=== PATIENT | male | born 1970 | race Caucasian/White ===

== ENCOUNTER → 2017-06-29 | Outpatient (CLI) | payer BC ==
[~2017-06-29] MED LIST: NS 100 ML IV 100 ML IV ONE
--- NOTE | 2017-06-29 11:44 | CT ---
HISTORY: Abdominal pain. Hernia. Previous appendectomy and cholecystectomy. Study: Computed tomography of the abdomen and pelvis: Multiple axial images were obtained throughou t the abdomen and pelvis after the ingestion of oral contrast and the injection of intravascular cont rast per standard protocol. Radiation dose reduction techniques utilized. Comparison: None Findings: The lung bases demonstrate minimal ground-glass opacity in the anterior aspect of the right middle lo be, possibly minimal infiltrate. Minimal hypostatic changes otherwise noted. Small areas of scarrin g are present. The heart size is normal. Minimal coronary arterial calcification is noted. No appreciable pericard ial effusion is noted. There is moderate fatty infiltration of the liver. No focal lesions are identified. Mild hepatomega ly is present. The patient is status post cholecystectomy. No appreciable biliary duct dilatation i s noted. The pancreas is normal in its appearance. The spleen is normal. A small splenic lobule is present. There is what appears to be a left adrenal nodule measuring approximately 14 mm in maximum dimension. Minimal thickening of the adrenal glands is noted. A 2nd nodule is present in the genu of the left adrenal gland measuring approximately 10 mm in maximum dimension. The kidneys enhance no rmally. There is a 1-2 mm nonobstructing calculus in the lower pole on the left. The abdominal aort a is normal. No evidence of retroperitoneal lymph node enlargement or abdominal aortic aneurysm is n oted. The prostate is normal size. Bilateral fat containing inguinal hernias are noted, right large r than left. The bladder contour is smooth. The seminal vesicles are symmetric. No evidence of kar e pelvic fluid or ascites is noted. A very tiny fat containing umbilical hernia is present. The stomach is nondistended. The duodenum and small bowel are normal. I see no evidence of mesenter ic adenopathy. The terminal ileum is normal. A fatty ileocecal valve is present. I do not identify an appendix. The ascending colon and transverse colon are normal. The descending colon is normal. The sigmoid colon is moderate to moderately severely redundant. A moderate amount of stool is noted in the sigmoid colon and rectum. Examination of the bone windows demonstrates minimal lumbar spondylosis. IMPRESSION: 1. There are bilateral fat containing inguinal hernias, right larger than left. 2. Possible minimal inflammatory infiltrate in the right middle lobe. 3. Moderate fatty infiltration of the liver with mild hepatomegaly. 4. Probable small left adrenal adenomas. 5. Nonobstructing lower pole left renal calculus. Reported By:
== END ==
LOC: RAD 08:27
PROVIDERS: ATTEND Internal Medicine
DX: K46.9 Unspecified abdominal hernia without obstruction or gangrene (principal); R10.84 Generalized abdominal pain
CPT/HCPCS: 74177; A4222

== ENCOUNTER 2018-11-28 13:44 | Observation (INO) ==
[2018-11-28] MEDS ORDERED: ZOFRAN INJ 4 MG VIAL IVP PRN (16:38)
[2018-11-28] MEDS ORDERED: NS 1000 ML 1,000 ML IV ONE (16:38)
[2018-11-28 17:07] LABS: BASOPHILS # (AUTO) 0.1 X10^3/uL (0.0-0.1); BASOPHILS % (AUTO) 1.9 % (0.2-1.0); EOSINOPHILS # (AUTO) 0.3 x10^3/uL (0.0-0.2); EOSINOPHILS % (AUTO) 5.8 % (0.9-2.9); HEMATOCRIT 46.3 % (42.0-54.0); HEMOGLOBIN 16.2 g/dL (13.5-18.0); LYMPHOCYTES # (AUTO) 1.5 X10^3/uL (1.3-2.9); LYMPHOCYTES % (AUTO) 31.4 % (21.0-51.0); MEAN CORPUSCULAR HEMOGLOBIN 33.2 pg (27.0-34.0); MEAN CORPUSCULAR VOLUME 94.6 fL (80.0-100.0); MEAN PLATELET VOLUME 8.3 fL (7.4-11.0); MONOCYTES # (AUTO) 0.8 x10^3/uL (0.3-0.8); MONOCYTES % (AUTO) 17.1 % (0.0-13.0); NEUTROPHILS % (AUTO) 43.8 % (42.0-75.0); PLATELET COUNT 233 X10^3/uL (150.0-450.0); RED CELL DISTRIBUTION WIDTH 12.6 % (11.6-16.5); WHITE BLOOD COUNT 4.6 X10^3/uL (3.6-10.0)
[2018-11-28 17:15] LABS: ALANINE AMINOTRANSFERASE 60 Units/L (12-78); ALBUMIN 3.7 g/dL (3.4-5.0); ALKALINE PHOSPHATASE 76 Units/L (46-116); ASPARTATE AMINO TRANSFERASE 44 Units/L (15-37); BLOOD UREA NITROGEN 11 mg/dL (7-18); CALCIUM 8.7 mg/dL (8.5-10.1); CARBON DIOXIDE 27.5 mmol/L (21-32); CHLORIDE 104 mmol/L (98-107); CREATININE 1.47 mg/dL (0.70-1.30); SODIUM 142 mmol/L (136-145); TOTAL PROTEIN 7.4 g/dL (6.4-8.2); eGFR NON BLACK RACES 54 (>60)
[2018-11-28] MEDS ORDERED: NORCO 5/325 MG TAB PO PRN (17:16)
[2018-11-28 17:22] VITALS: BMI 31.1
[2018-11-28] MEDS ORDERED: POTASSIUM CHL 60 MEQ/NS 0.45% 500 ML IV PRN (17:31)
[2018-11-28] MEDS ORDERED: KLOR-CON PO PRN (17:31)
[2018-11-28] MEDS ORDERED: POTASSIUM CHL 40 MEQ/NS 0.45% 500 ML IV PRN (17:31)
[2018-11-28] MEDS ORDERED: K-DUR TAB 20 MEQ PO PRN (17:31)
[2018-11-28] MEDS ORDERED: K-RIDER 10 MEQ/NS 100 ML 10 MEQ/100 ML BAG IV PRN (17:31)
[2018-11-28] MEDS ORDERED: MICRO K EXTEN CAP 10 MEQ PO PRN (17:31)
[2018-11-28] MEDS ORDERED: POTASSIUM CHLORIDE LIQ 20 MEQ UDC PO PRN (17:31)
[2018-11-28] MEDS ORDERED: MORPHINE SULFATE JET NEB NEB ONE (18:36)
[2018-11-28] MEDS: NS 1000 ML 1,000 ML IV SCH ×2 (19:40→22:27)
[2018-11-28] MEDS: MORPHINE SULFATE INJ 2 MG INJ IVP PRN (19:42)
[2018-11-28 19:53] LABS: BILIRUBIN,URINE NEGATIVE (NEGATIVE); BLOOD/HEMOGLOBIN,URINE 1+ (NEGATIVE); GLUCOSE, URINE NEGATIVE (NEGATIVE); KETONES,URINE NEGATIVE (NEGATIVE); LEUKOCYTE ESTERASE ,URINE NEGATIVE (NEGATIVE); NITRITES,URINE NEGATIVE (NEGATIVE); PROTEIN,URINE 2+ (NEGATIVE); UROBILINOGEN,URINE NORMAL (NORMAL)
[2018-11-28 20:13] LABS: APPEARANCE,URINE HAZY (CLEAR); BACTERIA,URINE NEGATIVE /HPF (NEGATIVE); COLOR,URINE YELLOW (YELLOW); RBC,URINE 0-2 /HPF (NONE SEEN); SQUAMOUS EPITHELIAL CELL,UR RARE /HPF (NEGATIVE)
[2018-11-28] MEDS: PROTONIX INJ 40 MG VIAL IVP SCH (22:34)
[2018-11-29] MEDS: NS 1000 ML 1,000 ML IV SCH ×3 (06:15→19:57)
[2018-11-29 06:42] LABS: BASOPHILS # (AUTO) 0.1 X10^3/uL (0.0-0.1); BASOPHILS % (AUTO) 1.6 % (0.2-1.0); EOSINOPHILS # (AUTO) 0.3 x10^3/uL (0.0-0.2); EOSINOPHILS % (AUTO) 5.4 % (0.9-2.9); HEMATOCRIT 41.6 % (42.0-54.0); HEMOGLOBIN 14.7 g/dL (13.5-18.0); LYMPHOCYTES # (AUTO) 1.9 X10^3/uL (1.3-2.9); LYMPHOCYTES % (AUTO) 38.7 % (21.0-51.0); MEAN CORPUSCULAR HEMOGLOBIN 33.3 pg (27.0-34.0); MEAN CORPUSCULAR HGB CONC 35.3 g/dL (33.0-35.0); MEAN CORPUSCULAR VOLUME 94.1 fL (80.0-100.0); MONOCYTES # (AUTO) 0.6 x10^3/uL (0.3-0.8); MONOCYTES % (AUTO) 12.3 % (0.0-13.0); NEUTROPHILS # (AUTO) 2.1 x10^3/uL (2.2-4.8); PLATELET COUNT 234 X10^3/uL (150.0-450.0); RED BLOOD COUNT 4.42 X10^6/uL (4.7-6.0); RED CELL DISTRIBUTION WIDTH 12.9 % (11.6-16.5)
[2018-11-29 06:51] LABS: ALANINE AMINOTRANSFERASE 56 Units/L (12-78); ALBUMIN 3.3 g/dL (3.4-5.0); ALKALINE PHOSPHATASE 61 Units/L (46-116); ASPARTATE AMINO TRANSFERASE 42 Units/L (15-37); BLOOD UREA NITROGEN 12 mg/dL (7-18); CALCIUM 8.3 mg/dL (8.5-10.1); CARBON DIOXIDE 29.1 mmol/L (21-32); CHLORIDE 108 mmol/L (98-107); COR CA(FOR HYPOALB) 8.9 mg/dL (8.5-10.1); CREATININE 1.34 mg/dL (0.70-1.30); SODIUM 144 mmol/L (136-145); TOTAL PROTEIN 6.6 g/dL (6.4-8.2); eGFR NON BLACK RACES 60 (>60)
[2018-11-29] MEDS: PROTONIX INJ 40 MG VIAL IVP SCH (09:21)
[2018-11-29] MEDS: LEVSIN/MAALOX/LIDOC VISC PO SCH ×4 (11:29→20:37)
[2018-11-29] MEDS: MORPHINE SULFATE INJ 2 MG INJ IVP PRN ×2 (11:31→19:22)
[2018-11-29] MEDS: PEPCID 20 MG IV PREMIX* 20 MG/50 ML BAG IV SCH ×2 (11:31→20:37)
--- NOTE | 2018-11-29 12:59 | US ---
HISTORY: Abdominal pain, diverticulitis Study: Ultrasound of the abdomen complete Comparison: CT scan of the abdomen and pelvis done 06/29/2017. Technique: Multiple gonzalez scale , duplex and color flow Doppler images of the abdomen were obtained. Findings: The liver is enlarged measuring 19.6 cm in length. There is diffuse fatty change.. No intraparenchym al mass or intrahepatic biliary ductal dilatation can be identified. Gallbladder is surgically absen t. The common bile duct is normal measuring 4.4 mm. Duplex color Doppler studies of the portal and he patic veins are normal. The visualized portions of the pancreas and spleen are normal in their echotexture and size. The right and left kidney are normal in echotexture and size. The right kidney measures 5.2 x 6.4 x 1 1.6 cm. Cortical thickness is 1.91 cm. . The left kidney measures 4.85 x 6.16 x 11.2 cm. Cortical thi ckness is 2.15 cm. . No mass, hydronephrosis, or stone can be identified. Color and duplex Doppler ar terial flow of both kidneys is normal. IVC flow is normal. The abdominal aorta is largely obscured by overlying bowel gas. IMPRESSION: Enlarged liver with diffuse steatosis. No liver mass or ductal ectasia is seen. Surgically absent gallbladder. Reported By:
--- NOTE | 2018-11-29 20:24 | DR.H&P ---
H&P - History & Physical for Day of: H&P Date: 11/28/18 - Chief Complaint Chief Complaint: ABDOMINAL PAIN - History of Present Illness History of Present Illness: IS A 48 YEAR OLD PATIENT OF OURS WHO PRESENTED TO THE HOSPITAL A DIRECT ADMISSION DUE TO SEVERE ABDOMINAL PAIN. HE REPORTS NAUSEA AND VOMITING WHEN HE EATS. HE ALSO REPORTS NIGHT SWEATS AND LEFT FLANK PAIN. UPON ARRIVAL TO THE HOSPITAL, VITALS WERE: 98.7-76-18-98%-133/78. LABS WERE OBTAINED. ABNORMAL LAB VALUES INCLUDE THE FOLLOWING: POTASSIUM 3.4, CREATININE 1.47, GLUCOSE 106, AST 44. URINALYSIS OBTAINED AND REVEALED: WBC 0-2, RBC 0-2, BACTERIA NEGATIVE, LEUKOCYTES NEGATIVE, OCCULT BLOOD 1+. AN OUTPATIENT CT WAS OBTAINED ON 11/27/18 AND REVEALED: MILD HEPATOMEGALY AND CHRONIC LIVER CHANGES WITH FATTY REPLACEMENT THROUGHOUT. MILD SPLENOMEGALY. MILD PROSTATE E NLARGEMENT WITH DIFFUSE BLADDER WALL THICKENING. QUESTIONABLE SMALL INGUINAL HERNIAS BILATERALLY. WE OBTAINED AND ABDOMEN ULTRASOUND ON ADMISSION AND IT REVEALED: ENLARGED LIVER WITH DIFFUSE STEATOSIS. HE WAS STARTED ON NORMAL SALINE AT 75ML/HR, IF PEPCID, IV PROTONIX, MORPHINE 1-2MG IV Q4H PRN, AND ZOFRAN 4MG IV Q4H PRN. WE WILL CONSULT FOR POSSIBLE EGD. OTHERWISE, WE PLAN TO FOLLOW UP WITH AM LABS AND CONTINUE TO MONITOR. - Past Surgical History Surgical History: Appendectomy, Cholecystectomy - Social History Does patient currently use any type of tobacco product: No Have you used tobacco products in the last 12 months: No Type of Tobacco Use: None Does any household member use tobacco: No Alcohol Use: None Drug Use: None - Medications Home Medications: meperidine [From Demerol] Allergy (Unknown, Verified 11/28/18 16:38) CONTINUE taking the following medications amlodipine 5 mg PO DAILY 11/28/18 [History] fluticasone propionate [Flonase Allergy Relief] 1 inh INTRANASAL DAILY 11/28/18 [History] lisinopril-hydrochlorothiazide 1 tab PO DAILY 11/28/18 [History] lorazepam 0.5 mg PO BID 11/28/18 [History] paroxetine HCl 20 mg PO DAILY 11/28/18 [History] ranitidine HCl [Zantac] 150 mg PO DAILY 11/28/18 [History] - Physical Exam Vital Signs: Temperature 98.3 F Pulse Rate [Right Brachial] 70 Respiratory Rate 18 Blood Pressure [Right Arm] 141/88 O2 Sat by Pulse Oximetry 97 - Allergies Allergies/Adverse Reactions: Allergies Allergy/AdvReac Type Severity Reaction Status Date / Time meperidine [From Demerol] Allergy Unknown Verified 11/28/18 16:38
[2018-11-30] MEDS: NS 1000 ML 1,000 ML IV SCH ×2 (00:37→14:42)
--- NOTE | 2018-11-30 06:06 | RAD ---
Chest radiograph, single AP view History: Shortness of breath Comparison: None Findings: Cardiac silhouette and pulmonary vasculature are accentuated though likely within normal limits. Lung volumes are diminished though clear of focal consolidation. No pneumothorax or pleural effusion. No acute osseous findings. Conclusion: No acute chest findings. Reported By:
[2018-11-30 06:23] LABS: BASOPHILS # (AUTO) 0.1 X10^3/uL (0.0-0.1); BASOPHILS % (AUTO) 1.3 % (0.2-1.0); EOSINOPHILS # (AUTO) 0.3 x10^3/uL (0.0-0.2); EOSINOPHILS % (AUTO) 4.9 % (0.9-2.9); HEMATOCRIT 43.6 % (42.0-54.0); HEMOGLOBIN 15.4 g/dL (13.5-18.0); LYMPHOCYTES # (AUTO) 2.2 X10^3/uL (1.3-2.9); LYMPHOCYTES % (AUTO) 32.8 % (21.0-51.0); MEAN CORPUSCULAR HEMOGLOBIN 33.1 pg (27.0-34.0); MEAN CORPUSCULAR HGB CONC 35.3 g/dL (33.0-35.0); MEAN CORPUSCULAR VOLUME 93.9 fL (80.0-100.0); MEAN PLATELET VOLUME 7.8 fL (7.4-11.0); MONOCYTES # (AUTO) 0.6 x10^3/uL (0.3-0.8); MONOCYTES % (AUTO) 8.3 % (0.0-13.0); NEUTROPHILS # (AUTO) 3.5 x10^3/uL (2.2-4.8); NEUTROPHILS % (AUTO) 52.7 % (42.0-75.0); PLATELET COUNT 268 X10^3/uL (150.0-450.0); RED BLOOD COUNT 4.64 X10^6/uL (4.7-6.0); RED CELL DISTRIBUTION WIDTH 12.6 % (11.6-16.5); WHITE BLOOD COUNT 6.7 X10^3/uL (3.6-10.0)
[2018-11-30 06:44] LABS: ALANINE AMINOTRANSFERASE 62 Units/L (12-78); ALBUMIN 3.6 g/dL (3.4-5.0); ALKALINE PHOSPHATASE 63 Units/L (46-116); ASPARTATE AMINO TRANSFERASE 39 Units/L (15-37); BLOOD UREA NITROGEN 10 mg/dL (7-18); CALCIUM 8.4 mg/dL (8.5-10.1); CARBON DIOXIDE 24.4 mmol/L (21-32); CHLORIDE 107 mmol/L (98-107); CREATININE 1.29 mg/dL (0.70-1.30); SODIUM 143 mmol/L (136-145); eGFR NON BLACK RACES > 60 (>60)
[2018-11-30] MEDS: PEPCID 20 MG IV PREMIX* 20 MG/50 ML BAG IV SCH (08:40)
[2018-11-30] MEDS: PROTONIX INJ 40 MG VIAL IVP SCH (08:41)
--- NOTE | 2018-11-30 08:45 | DR.CONSULT ---
Consult - Consultation for Day of: Date: 11/29/18 - Chief Complaint Chief Complaint: Patient referred for abdominal pain, nausea vomiting and weight loss. Patinet with compaints of nausea, vomiting, abdominal pain and diarrhea. - History of Present Illness History of Present Illness: Patient is a 48yo male who was referred for abdominal pain, nausea vomiting and weight loss. Patinet with compaints of nausea x 1week, vomiting x 1 week last episode was tuesday, diffuse abdominal pain worse on the left side and diarrhea x 2weeks that started out looking coffee ground now green mucousy. Patient denies dysphagia, dyspepsia, constipation and hematochezia. Patient had CT in [facility] which showed fatty infiltration or liver no diverticulitis. Patinet denies ever having colon or EGD. Hgb 14.7, Hct 41.6, Plt 234, BUN 12 , Creatinine 1.34, T. Bili 0.6, AST 42, ALT 56, Alk Phos 61. Patient noted to have LUQ tenderness. - Past Medical History Past Medical History: Hypertension Additional Medical History: h/o diverticulitis - Past Surgical History Surgical History: Appendectomy, Cholecystectomy - Social History Does patient currently use any type of tobacco product: No Have you used tobacco products in the last 12 months: No Type of Tobacco Use: None Does any household member use tobacco: No Alcohol Use: None Drug Use: None - Medications Home Medications: meperidine [From Demerol] Allergy (Unknown, Verified 11/28/18 16:38) CONTINUE taking the following medications amlodipine 5 mg PO DAILY 11/28/18 [History] fluticasone propionate [Flonase Allergy Relief] 1 inh INTRANASAL DAILY 11/28/18 [History] lisinopril-hydrochlorothiazide 1 tab PO DAILY 11/28/18 [History] lorazepam 0.5 mg PO BID 11/28/18 [History] paroxetine HCl 20 mg PO DAILY 11/28/18 [History] ranitidine HCl [Zantac] 150 mg PO DAILY 11/28/18 [History] - Review of Systems Gastrointestinal: See HPI, Nausea, Vomiting, Abdominal Pain, Diarrhea. denies: Constipation, Melena, Hematochezia, Other - Physical Exam Vital Signs: Temperature 98.1 F Pulse Rate [Right Brachial] 66 Respiratory Rate 20 Blood Pressure [Right Arm] 128/78 O2 Sat by Pulse Oximetry 96 Oriented: Normal Eyes: Normal Ear: Normal Nose: Normal Throat: Normal Respiratory: Clear Throughout Cardiovascular: Tachycardia Auscultation: Bowel Sounds: Normal Palpation: Normal, Other (no distention). negative: Spleen Enlarged, Liver Enlarged, Mass Pulsatile Tenderness: LUQ Skin: Normal Musculoskeletal: Normal Psychiatric: Normal Mood Description: Calm Affect: Normal Speech Pattern: Clear, Appropriate - Plan Plan: Assessment. 1. Nausea, vomiting, abdominal pain. 2. Diarrhea. Plan. 1. IV Zofran, IV Protonix, May have clear liquid diet, EGD in am. 2. Stool Studies. Plan reviewed with Dr. Valenzuela - Allergies Allergies/Adverse Reactions: Allergies Allergy/AdvReac Type Severity Reaction Status Date / Time meperidine [From Demerol] Allergy Unknown Verified 11/28/18 16:38
[2018-11-30] MEDS: LEVSIN/MAALOX/LIDOC VISC PO SCH ×3 (09:15→16:41)
--- NOTE | 2018-11-30 10:13 | DR.H&P ---
H&P - Past Medical History Past Medical History: Hypertension Additional Medical History: h/o diverticulitis - Past Surgical History Surgical History: Appendectomy, Cholecystectomy - Social History Does patient currently use any type of tobacco product: No Have you used tobacco products in the last 12 months: No Type of Tobacco Use: None Does any household member use tobacco: No Alcohol Use: None Drug Use: None - Medications Home Medications: meperidine [From Demerol] Allergy (Unknown, Verified 11/28/18 16:38) CONTINUE taking the following medications amlodipine 5 mg PO DAILY 11/28/18 [History] fluticasone propionate [Flonase Allergy Relief] 1 inh INTRANASAL DAILY 11/28/18 [History] lisinopril-hydrochlorothiazide 1 tab PO DAILY 11/28/18 [History] lorazepam 0.5 mg PO BID 11/28/18 [History] paroxetine HCl 20 mg PO DAILY 11/28/18 [History] ranitidine HCl [Zantac] 150 mg PO DAILY 11/28/18 [History] New Prescriptions ondansetron HCl [Zofran] 4 mg PO Q6H PRN #30 tab 11/30/18 [Rx] pantoprazole [Protonix] 40 mg PO BID #60 tab 11/30/18 [Rx] - Review of Systems Eyes: No Symptoms Reported ENT: No Symptoms Reported Respiratory: Shortness of Breath Cardiovascular: No Symptoms Reported Gastrointestinal: Nausea, Vomiting, Abdominal Pain, Diarrhea, Melena Genitourinary: No Symptoms Reported Musculoskeletal: No Symptoms Reported Skin: No Symptoms Reported Neurological: No Symptoms Reported - Physical Exam Vital Signs: Temperature 98.2 F Pulse Rate [Right Brachial] 66 Respiratory Rate 18 Blood Pressure [Right Arm] 115/70 O2 Sat by Pulse Oximetry 95 Oriented: Normal Eyes: Normal Ear: Normal Nose: Normal Throat: Normal Respiratory: Diminished Throughout Cardiovascular: Normal : Normal Auscultation: Bowel Sounds: Increased Palpation: Normal Tenderness: Normal, Moderate. negative: Rebound, Guarding, Rigidity Skin: Normal Musculoskeletal: Normal Psychiatric: Normal Mood Description: Calm Affect: Normal Speech Pattern: Clear - Assessment/Plan (1) Abdominal pain Qualifiers: Abdominal location: generalized Qualified Code(s): R10.84 - Generalized abdominal pain Status: Acute Plan: IV FLUIDS, IV PEPCID, IV PROTONIX, MORPHINE, ZOFRAN, GASTRO CONSULT, CONTINUE TO MONITOR. (2) Nausea and vomiting Qualifiers: Vomiting Intractability: unspecified Status: Acute (3) Diarrhea Qualifiers: Diarrhea type: unspecified type Qualified Code(s): R19.7 - Diarrhea, unspecified Status: Acute - Allergies Allergies/Adverse Reactions: Allergies Allergy/AdvReac Type Severity Reaction Status Date / Time meperidine [From Demerol] Allergy Unknown Verified 11/28/18 16:38
[2018-11-30] MEDS ORDERED: DIPRIVAN VIAL ONE (14:03)
[2018-11-30] MEDS ORDERED: DIPRIVAN VIAL 20 ML ONE (14:29)
[2018-11-30] MEDS ORDERED: STERILE WATER IRRIGATION ONE (15:50)
[2018-11-30 16:33] VITALS: BP 146/84
[2018-11-30 18:43] LABS: CRYPTOSPORIDIUM PARVUM ANTIGEN NEGATIVE (NEGATIVE); GIARDIA LAMBLIA ANTIGEN NEGATIVE (NEGATIVE)
== END 2018-11-30 17:05 | disposition home or self-care (01) ==
LOC: MED/SURG
PROVIDERS: ADMIT Internal Medicine; ATTEND Internal Medicine
DX: A02.0 Salmonella enteritis; R16.2 Hepatomegaly with splenomegaly, not elsewhere classified; R10.84 Generalized abdominal pain; R19.4 Change in bowel habit; K29.80 Duodenitis without bleeding; K21.9 Gastro-esophageal reflux disease without esophagitis; K76.0 Fatty (change of) liver, not elsewhere classified; K29.00 Acute gastritis without bleeding; K20.8 Other esophagitis; R11.2 Nausea with vomiting, unspecified; N40.0 Benign prostatic hyperplasia without lower urinary tract symptoms
CPT/HCPCS: 36415; 71010; 71045; 76700; 80053; 81001; 82270; 83630; 83735; 85025; 87045; 87077; 87186; 87328; 87329; 87338; 87427; 87449; 87493; 87899; A4216; A4217; A4222; C9113; S0028; G0378; J2270; J2704; J7030